=== PATIENT | male | born 1950 ===

== ENCOUNTER 2018-12-26 10:34 | Outpatient (REF) | payer MEDICARE, BC, SELFPAY ==
[2018-12-26 21:30] LABS: Anion Gap 8.1 mmol/L (3-11); BUN 16 mg/dL (7-18); CO2 26.9 mmol/L (21.0-32.0); Calcium 8.8 mg/dL (8.5-10.1); Calculated LDL 161 mg/dL; Chloride 102 mmol/L (98-107); Cholesterol 262 mg/dL (50-200); Glucose 125 mg/dL (70-100); HDL Cholesterol 45 mg/dL (40-60); Potassium 4.6 mmol/L (3.5-5.1); Sodium 137 mmol/L (136-145); Triglyceride 282 mg/dL (30-150)
== END 2018-12-26 10:54 ==
LOC: NCHCN 10:34
PROVIDERS: PCP Family Medicine; Visit Provider Family Medicine
DX: Z13.6 Encounter for screening for cardiovascular disorders (principal); Z13.1 Encounter for screening for diabetes mellitus
CPT/HCPCS: 80048; 80061

== ENCOUNTER 2020-07-01 20:55 | Outpatient (REF) | payer MEDICARE, BC, SELFPAY ==
[2020-07-01 15:51] LABS: Hemoglobin A1C 6.1 % (<5.7)
[2020-07-01 16:01] LABS: Calculated LDL 137 mg/dL (<100); Cholesterol 215 mg/dL (<200); HDL Cholesterol 63 mg/dL (40-60); Triglyceride 78 mg/dL (<150)
== END 2020-07-01 20:56 | disposition home or self-care (01) ==
LOC: NCHCN 20:55
PROVIDERS: PCP Family Medicine; Visit Provider Family Medicine
DX: E78.5 Hyperlipidemia, unspecified (principal); R73.09 Other abnormal glucose; Z83.3 Family history of diabetes mellitus
CPT/HCPCS: 80061; 83036

== ENCOUNTER 2025-03-14 15:56 | Outpatient (REF) | payer MEDICARE, BC, SELFPAY ==
[2025-03-14 20:47] LABS: Anion Gap 6.9 mmol/L (3-11); BUN 21 mg/dL (9-23); CO2 26.1 mmol/L (20.0-31.0); Calcium 9.0 mg/dL (8.3-10.6); Chloride 109 mmol/L (98-107); Cholesterol 178 mg/dL (<200); Glucose 118 mg/dL (74-106); HDL Cholesterol 57 mg/dL (>40); Potassium 4.1 mmol/L (3.5-5.1); Sodium 142 mmol/L (136-145)
== END 2025-03-14 15:57 | disposition home or self-care (01) ==
LOC: NCHCN 15:56
PROVIDERS: PCP Family Medicine; Visit Provider Family Medicine
DX: Z13.1 Encounter for screening for diabetes mellitus (principal); E78.5 Hyperlipidemia, unspecified
CPT/HCPCS: 80048; 80061